=== PATIENT | male | born 1970 | race American Indian/Alaskan Native ===

== ENCOUNTER 2018-12-30 16:23 | Emergency (ER) | payer SELFPAY ==
--- NOTE | 2018-12-30 16:31 | Event Note ---
ED Screening Note Date of service: 12/30/18 Time: 16:28 ED Screening Note: This is a 48 y.o. M. that presents to the ER with BLE pain. Patient reports a tightening sensation bilaterally like a balloon is about to burst. PMH HIV, asthma, neuropathy, HTN, & arthritis. Patient states visiting from [place] for the past 5 days. Patient states he came via [employer]. Denies SOB, palpitations, or chest x-ray. This initial assessment/diagnostic orders/clinical plan/treatment(s) is/are subject to change based on patients health status, clinical progression and re- assessment by fellow clinical providers in the ED. Further treatment and workup at subsequent clinical providers discretion. Patient/guardian urged not to elope from the ED as their condition may be serious if not clinically assessed and managed. Initial orders include: Labs and CXR
--- NOTE | 2018-12-30 17:15 | XRay Report ---
CHEST 1 VIEW 12/30/2018 4:50 PM INDICATION / CLINICAL INFORMATION: BLE edema. COMPARISON: None available. FINDINGS: SUPPORT DEVICES: None. HEART / MEDIASTINUM: No significant abnormality. LUNGS / PLEURA: No significant pulmonary or pleural abnormality. No pneumothorax. ADDITIONAL FINDINGS: No significant additional findings. IMPRESSION: 1. No acute findings. Signer Name: Forrest Raymond MD Signed: 12/30/2018 5:10 PM Workstation Name: [id number]
[2018-12-30 17:19] LABS: Basophils # (Auto) 0.1 K/mm3 (0.0-0.1); Eosinophils # (Auto) 0.3 K/mm3 (0.0-0.4); Eosinophils % (Auto) 3.8 % (0.0-4.3); Hemoglobin 14.1 gm/dl (11.8-15.2); Lymphocytes # (Auto) 2.1 K/mm3 (1.2-5.4); Lymphocytes % (Auto) 32.1 % (13.4-35.0); Mean Corpuscular HGB Conc 34 % (32-34); Mean Corpuscular Volume 90 fl (84-94); Monocytes # (Auto) 0.5 K/mm3 (0.0-0.8); Monocytes % (Auto) 7.4 % (0.0-7.3); Platelet Count 286 K/mm3 (140-440); Red Blood Count 4.56 M/mm3 (3.65-5.03); Red Cell Distribution Width 13.9 % (13.2-15.2)
[2018-12-30 17:49] LABS: Albumin 4.5 g/dL (3.9-5); Calcium 9.3 mg/dL (8.4-10.2)
[2018-12-30] MEDS ORDERED: K-DUR PO ONE (19:03)
--- NOTE | 2018-12-30 19:05 | Emergency Department Report ---
ED General Adult HPI - General Chief complaint: Extremity Injury, Lower Stated complaint: LEG AND FEET SWOLLEN Time Seen by Provider: 12/30/18 16:27 Source: patient Mode of arrival: Ambulatory Limitations: No Limitations - History of Present Illness Initial comments: This is a 48 y.o. M. that presents to the ER with BLE pain. Patient reports a tightening sensation bilaterally like a balloon is about to burst. PMH HIV, asthma, neuropathy, HTN, & arthritis. Patient states visiting from [place] for the past 5 days. [facility] Denies SOB, NO palpitations, Onset/Timin -: days(s) Location: lower extremity Radiation: extremity Severity scale (0 -10): 4 Quality: aching Consistency: constant Improves with: none Worsens with: none Associated Symptoms: shortness of breath Treatments Prior to Arrival: none - Related Data Previous Rx's Medication Instructions Recorded Last Taken Type Potassium Chloride 40 meq PO DAILY #60 ml 12/30/18 Unknown Rx cephALEXin [Keflex] 500 mg PO Q12HR 7 Days #14 cap 12/30/18 Unknown Rx Allergies Allergy/AdvReac Type Severity Reaction Status Date / Time Sulfa (Sulfonamide Allergy Itching Verified 12/30/18 16:24 Antibiotics) ED Review of Systems ROS: Stated complaint: LEG AND FEET SWOLLEN Other details as noted in HPI Constitutional: denies: chills, fever Eyes: denies: eye pain, eye discharge, vision change ENT: denies: ear pain, throat pain Respiratory: shortness of breath. denies: cough, wheezing Cardiovascular: denies: chest pain, palpitations Endocrine: no symptoms reported Gastrointestinal: denies: abdominal pain, nausea, vomiting, diarrhea Genitourinary: denies: urgency, dysuria Musculoskeletal: myalgia, other (BILAT lE Edema ) Skin: denies: rash, lesions Neurological: denies: headache, weakness, paresthesias Psychiatric: denies: anxiety, depression Hematological/Lymphatic: denies: easy bleeding, easy bruising ED Past Medical Hx - Past Medical History Previous Medical History?: Yes Hx Hypertension: Yes Hx Arthritis: Yes Hx Asthma: Yes Hx HIV: Yes Additional medical history: neuropathy - Surgical History Past Surgical History?: No - Social History Smoking Status: Never Smoker Substance Use Type: Alcohol - Medications Home Medications: Home Medications Medication Instructions Recorded Confirmed Last Taken Type Potassium Chloride 40 meq PO DAILY #60 ml 12/30/18 Unknown Rx cephALEXin [Keflex] 500 mg PO Q12HR 7 Days #14 cap 12/30/18 Unknown Rx ED Physical Exam - General Limitations: No Limitations General appearance: alert, in no apparent distress - Head Head exam: Present: atraumatic, normocephalic - Eye Eye exam: Present: normal appearance, PERRL, EOMI Pupils: Present: normal accommodation - ENT ENT exam: Present: normal exam, normal orophraynx, mucous membranes moist, TM's normal bilaterally, normal external ear exam - Neck Neck exam: Present: normal inspection, full ROM. Absent: tenderness, meningismus, lymphadenopathy, thyromegaly - Expanded Neck Exam Expanded Neck exam: Absent: tenderness, midline deformity, anterior neck swelling, thyroid mass, carotid bruit, tracheal deviation - Respiratory Respiratory exam: Present: normal lung sounds bilaterally. Absent: respiratory distress, wheezes, rales, rhonchi, stridor, chest wall tenderness, decreased breath sounds - Cardiovascular Cardiovascular Exam: Present: regular rate, normal rhythm, normal heart sounds. Absent: systolic murmur, diastolic murmur, rubs, gallop - GI/Abdominal GI/Abdominal exam: Present: soft, normal bowel sounds. Absent: distended, t enderness, bruit, hernia - Rectal Rectal exam: Present: deferred - Extremities Exam Extremities exam: Present: full ROM, normal capillary refill, pedal edema (+1), other (no pain with dorsoflexion no postier calf pain ). Absent: tenderness, joint swelling, calf tenderness - Back Exam Back exam: Present: normal inspection, full ROM. Absent: tenderness, CVA tenderness (R), CVA tenderness (L), muscle spasm, paraspinal tenderness, vertebral tenderness, rash noted - Neurological Exam Neurological exam: Present: alert, oriented X3, CN II-XII intact, normal gait, reflexes normal. Absent: motor sensory deficit - Psychiatric Psychiatric exam: Present: normal affect, normal mood - Skin Skin exam: Present: warm, dry, intact, normal color. Absent: rash ED Course Vital Signs 12/30/18 16:27 Temperature 98.6 F Pulse Rate 91 H Respiratory 16 Rate Blood Pressure 141/81 O2 Sat by Pulse 99 Oximetry ED Medical Decision Making - Lab Data Result diagrams: 12/30/18 16:39 12/30/18 16:39 Labs 12/30/18 12/30/18 12/30/18 16:39 16:39 19:27 WBC 6.6 RBC 4.56 Hgb 14.1 Hct 41.0 MCV 90 MCH 31 MCHC 34 RDW 13.9 Plt Count 286 Lymph % (Auto) 32.1 Alexander % (Auto) 7.4 H Eos % (Auto) 3.8 Baso % (Auto) 1.0 Lymph # 2.1 Alexander # 0.5 Eos # 0.3 Baso # 0.1 Seg Neutrophils % 55.7 Seg Neutrophils # 3.7 PT 12.4 INR 0.95 APTT 25.1 D-Dimer 138.17 Sodium 139 Potassium 3.0 L Chloride 96.1 L Carbon Dioxide 28 Anion Gap 18 BUN 11 Creatinine 1.4 Estimated GFR 54 BUN/Creatinine Ratio 8 Glucose 118 H Calcium 9.3 Total Bilirubin 0.20 AST 24 ALT 23 Alkaline Phosphatase 66 NT-Pro-B Natriuret Pep 94.61 Total Protein 7.4 Albumin 4.5 Albumin/Globulin Ratio 1.6 Urine Color Urine Turbidity Urine pH Ur Specific [place] Urine Protein Urine Glucose (UA) Urine Ketones Urine Blood Urine Nitrite Ur Reducing Substances Urine Bilirubin Urine Ictotest Urine Urobilinogen Ur Leukocyte Esterase Urine WBC (Auto) Urine RBC (Auto) Urine WBC Clumps 12/30/18 Unknown WBC RBC Hgb Hct MCV MCH MCHC RDW Plt Count Lymph % (Auto) Alexander % (Auto) Eos % (Auto) Baso % (Auto) Lymph # Alexander # Eos # Baso # Seg Neutrophils % Seg Neutrophils # PT INR APTT D-Dimer Sodium Potassium Chloride Carbon Dioxide Anion Gap BUN Creatinine Estimated GFR BUN/Creatinine Ratio Glucose Calcium Total Bilirubin AST ALT Alkaline Phosphatase NT-Pro-B Natriuret Pep Total Protein Albumin Albumin/Globulin Ratio Urine Color Colorless Urine Turbidity Clear Urine pH 6.0 Ur Specific [place] 1.002 L Urine Protein <15 mg/dl Urine Glucose (UA) Negative Urine Ketones Negative Urine Blood Negative Urine Nitrite Negative Ur Reducing Substances Negative Urine Bilirubin Negative Urine Ictotest Negative Urine Urobilinogen < 2.0 Ur Leukocyte Esterase Small Urine WBC (Auto) 20.0 H Urine RBC (Auto) 1.0 Urine WBC Clumps Rare - EKG Data EKG shows normal: sinus rhythm, axis, intervals Rate: normal - EKG Data When compared to previous EKG there are: previous EKG unavailable Interpretation: nonspecific ST-T wave lewis (EKG interp by ed attending ), LVH - Radiology Data Radiology results: report reviewed, image reviewed Normal cxr no infiltrates no opacities - Medical Decision Making pt advises pain relieved EKG NSR LVH, t wave inversion, labs: K: 3.0, pt denies cp no sob no dizziness no light headedness no cramping, Ua: moderate luek, wbc, this not a dvt distal pulses 2 bila, no calf tenderness neg homans sign, no pain with dorsoflexion, plan tx for UTI, KCL po daily x 3 days continue bp medications as rx will refill same at this time. pt will follow up with pcp and ID physicians in 2-3 day return to ed if symptoms worsen, pt verbalized agreement and understanding of discharge plan. Critical care attestation.: If time is entered above; I have spent that time in minutes in the direct care of this critically ill patient, excluding procedure time. ED Disposition Clinical Impression: Bilateral leg edema UTI (urinary tract infection) Qualifiers: Urinary tract infection type: acute cystitis Hematuria presence: without hematuria Qualified Code(s): N30.00 - Acute cystitis without hematuria Disposition: TO HOME OR SELFCARE Is pt being admited?: No Does the pt Need Aspirin: No Condition: Stable Instructions: Leg Edema (ED) Prescriptions: cephALEXin [Keflex] 500 mg PO Q12HR 7 Days #14 cap Potassium Chloride 40 meq PO DAILY #60 ml Referrals: MAMTA COX MD [Primary Care Provider] - 3-5 Days [facility] [Outside] - 3-5 Days DEANDRE DOMINGUEZ MD [Staff Physician] - 3-5 Days Forms: Work/School Release Form(ED) Time of Disposition: 21:09
[2018-12-30 20:00] LABS: INR 0.95 (0.87-1.13); Partial Thromboplastin Time 25.1 Sec. (24.2-36.6)
[2018-12-30 20:39] LABS: Bilirubin,Urine Negative (Negative); Blood,Urine Negative (Negative); Color,Urine Colorless (Yellow)
[2018-12-30 20:40] LABS: Protein,Urine <15 mg/dL mg/dL (Negative); Urobilinogen,Urine < 2.0 mg/dL (<2.0)
[2018-12-30 20:41] LABS: Ictotest,Urine Negative (Negative)
[2018-12-31 06:42] VITALS: BP 130/74
== END 2018-12-30 21:20 | disposition home or self-care (01) ==
LOC: ED 16:23
DX: R60.0 Localized edema (principal); N39.0 Urinary tract infection, site not specified; I10 Essential (primary) hypertension; M19.90 Unspecified osteoarthritis, unspecified site; J45.909 Unspecified asthma, uncomplicated; Z88.2 Allergy status to sulfonamides
CPT/HCPCS: 36415; 71045; 80053; 81001; 83880; 85025; 85379; 85610; 85730; 87086; 93005; 93010